=== PATIENT | female | born 1935 | race Caucasian/White ===

== ENCOUNTER 2017-08-21 21:46 | Inpatient (IN) | payer MEDICARE, MEDICAID ==
[~2017-08-21] VITALS: Ht 170.2 cm; Wt 53.8 kg
[~2017-08-21 21:46] MED LIST changes: -CALC-649 PO; -[UNRECOGNIZED DRUG - CODE] SL
[2017-08-21] MEDS ORDERED: NS(*) 0.9% 1000 ML BAG 1,000 ML IV ONE (21:56)
[2017-08-21 22:10] LABS: PLATELET COUNT, AUTOMATED 137 K/uL (150-450)
--- NOTE | 2017-08-21 22:15 | EKG ---
FACILITY: [facility] - [place] PATIENT NAME: CRISTHIAN CERVANTES : [id number] MR: [id number] V: [id number] EXAM DATE: ORDERING PHYSICIAN: MARNI CALDERON TECHNOLOGIST: ANDRES Test Reason : HYPOXIA Blood Pressure : / mmHG Vent. Rate : 139 BPM Atrial Rate : 139 BPM P-R Int : 120 ms QRS Dur : 080 ms QT Int : 294 ms P-R-T Axes : 085 -76 079 degrees QTc Int : 447 ms Sinus tachycardia Left axis deviation Pulmonary disease pattern Septal infarct (cited on or before 09-FEB-2017) Inferior infarct , age undetermined T flattening laterally consistent with ischemia or normal variant When compared with ECG of 09-FEB-2017 21:31, Inferior infarct is now present Questionable change in initial forces of Septal leads Confirmed by LILLI LONG ([id number]) on 08/22/2017 1:52:19 AM Referred By: Confirmed By:LILLI LONG
--- NOTE | 2017-08-21 22:54 | ER Report ---
History and Physical Time Seen By MD: 21:55 Hx. of Stated Complaint: PT SENT HERE FROM [facility]. PT REQUIRING O2 WITH LOW SATS. POSSIBLE NEW ONSET AFIB. HPI/ROS CHIEF COMPLAINT: Altered mental status, hypoxia HISTORY OF PRESENT ILLNESS: 82-year-old female sent from [facility] by ambulance for hypoxia. See correction paperwork for additional details. On arrival, patient does not respond to questions, but moans response, patient has movement of extremities 4. Patient is DO NOT RESUSCITATE. Patient has a history of aspiration. She is on thickened liquids. REVIEW OF SYSTEMS: Respiratory: No cough, no dyspnea. Cardiovascular: No chest pain, no palpitations. Gastrointestinal: No vomiting, no abdominal pain. Musculoskeletal: No back pain. Allergies: Coded Allergies: ezetimibe (Verified Allergy, Intermediate, MUSCLE PAIN, 03/23/13) simvastatin (Verified Allergy, Intermediate, MUSCLE PAIN, 03/23/13) egg (Verified Allergy, Mild, UNKNOWN, 10/17/14) pt stated, reaction mild, makes her "feel funny" sulfamethoxazole (Verified Allergy, Mild, 03/23/13) trimethoprim (Verified Allergy, Mild, 03/23/13) walnut (Verified Allergy, Mild, UNKNOWN, 10/17/14) pt stated she doesnt know reaction, walnuts just make her "feel funny" codeine (Verified Allergy, Unknown, 03/23/13) ropinirole (Unverified Adverse Reaction, Severe, 12/30/14) Falls, confusion metoclopramide (Verified Adverse Reaction, Mild, JUMPY, ANXIOUS, 03/23/13) ZAHIDA Inhibitors (Unverified Adverse Reaction, Unknown, COUGH, 12/07/13) aspirin (Verified Adverse Reaction, Unknown, 08/23/14) anxiety Home Meds Active Scripts Cyanocobalamin (Vitamin B-12) (CYANOCOBALAMIN INJECTION) 1,000 Mcg/1 Ml Vial, 1000 MCG IM DIRECTED, #10 VIAL 1 Refill 1,000 mcg daily for 1 week then 1,000 mcg weekly for 1 month then 1,000 mcg monthly thereafter Prov:WELLINGTON THOMAS APRN VERIFICATION REP-C 01/12/16 Citalopram Hydrobromide (CITALOPRAM HBR) 20 Mg Tablet, 1 TAB PO QDAY, #5 TAB 5 Refills TAKE 1 TABLET BY MOUTH EVERY DAY Prov:WELLINGTON THOMAS APRN-Abdirahman 10/16/15 Aspirin (ASPIR 81) 81 Mg Tablet.dr, 1 TAB PO QDAY, #30 TAB 11 Refills Prov:WELLINGTON THOMAS APRN 10/04/15 Acetaminophen (TYLENOL EXTRA STRENGTH) 500 Mg Tablet, 1 TAB PO TID, #90 TAB 12 Refills Prov:WELLINGTON THOMAS APRN-C 04/03/15 Cholecalciferol (Vitamin D3) (VITAMIN D) 2,000 Unit Capsule, 1 CAP PO QDAY, #90 CAPSULE 4 Refills Prov:NORMA SALINAS MD 09/08/14 Reported Medications Calcium Carbonate/Vitamin D3 (CALCIUM 600 + VIT D 200 TABLET) 1 Each Tablet, 1 EACH PO BID 08/22/17 Glycopyrrolate (GLYCOPYRROLATE) 0.2 Mg/1 Ml Vial, 0.1 MG SL Q6H Y for EXCESS ORAL SECRETIONS, VIAL 08/21/17 Acetaminophen (TYLENOL) 325 Mg Tablet, 2 TAB PO Q4H Y for PAIN OR FEVER 100 OR GREATER, TAB 03/10/17 Discontinued Reported Medications Guaifenesin/Dextromethorphan (TUSSIN DM LIQUID) 118 Ml Liquid, 118 ML PO PRN 03/10/17 Nystatin 100,000 Unit/Gm Top Powder (NYSTATIN 100,000 UNIT/GM TOP POWDER) 15 Gm Powder, 15 GM TP PRN, TUBE 03/10/17 Polyethylene Glycol 3350 (MIRALAX) 17 Gm Powd.pack, 17 GM PO PRN, PKT 03/10/17 Sodium Chloride (DEEP SEA) 44 Ml [place], 44 ML NS PRN, SPRAY 03/10/17 Diclofenac Sodium 1% Gel (VOLTAREN 1% GEL) 100 Gm Gel..gram., 4 GM TOP TID Y for PAIN 10/14/14 Discontinued Scripts Calcium Carbonate/Vitamin D3 (CALCIUM 600 + VIT D CAPLET) 1 Each Tablet, 1 EACH PO TID, #90 TAB 11 Refills Prov:WELLINGTON THOMAS APRN 05/09/15 Omeprazole (OMEPRAZOLE) 20 Mg Tablet.dr, 1 TAB PO BID, #180 TAB 4 Refills TAKE ONE TABLET BY MOUTH TWICE A DAY Prov:WELLINGTON THOMAS APRN 11/27/15 Past Medical/Surgical History Past Medical History Cardiovascular: Reports hx of: hyperlipidemia hypertension Gastrointestinal: Reports hx of: GERD Musculoskeletal: Reports hx of: fractures (PELVIS 06/18 & 10/19) osteopenia osteoporosis Psychiatric: Reports hx of: depression Past Surgical History HEENT: Reports hx of: cataract extraction (2014) Gastrointestinal: Reports hx of: appendectomy Gynecologic: Reports hx of: 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) oophorectomy Breast: Reports hx of: breast biopsy (X3 REMOTE) Musculoskeletal: Reports hx of: spinal surgery (LUMBAR OR FOR SCIATICA, KYPHOPLASTY 04/2009) 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, BILAT DALE) Reviewed Nurses Notes: Yes Old Medical Records Reviewed: Yes Hx Smoking: No Smoking Status: Former Smoker Exposure to Second Hand Smoke?: No Hx Substance Use Disorder: No Hx Alcohol Use: No Constitutional Vital Sign - Last 24 Hours 08/21/17 08/21/17 08/21/17 08/21/17 21:51 21:52 22:00 22:01 Temp 99.1 Pulse 137 143 Resp 22 26 B/P (MAP) 130/87 (101) 130/87 108/81 (90) Pulse Ox 97 97 O2 Delivery Nasal Cannula 08/21/17 08/21/17 08/21/17 08/21/17 22:08 22:16 22:30 22:31 Pulse 145 142 Resp 29 24 B/P (MAP) 107/79 (88) Pulse Ox 98 98 O2 Flow Rate 5.0 08/21/17 08/21/17 08/21/17 08/21/17 22:46 22:51 23:00 23:06 Pulse 138 126 120 Resp 26 22 22 B/P (MAP) 74/57 (63) Pulse Ox 97 98 98 08/21/17 08/21/17 08/21/17 08/21/17 23:12 23:21 23:30 23:36 Pulse 112 114 Resp 22 24 B/P (MAP) 112/83 (93) 116/78 (91) Pulse Ox 99 99 08/21/1718 08/21/17 08/22/17 23:41 23:54 23:56 00:00 Pulse 118 110 Resp 19 20 B/P (MAP) 94/69 (77) 88/67 (74) Pulse Ox 97 98 5/18/18 5/18/18 5/18/18 5/18/18 00:01 00:11 00:13 00:15 Temp 100.3 Pulse 115 Resp 21 B/P (MAP) 82/62 (69) 93/62 (72) Pulse Ox 97 08/22/17 08/22/17 08/22/17 08/22/17 00:26 00:30 00:41 00:45 Pulse 117 115 Resp 22 B/P (MAP) 92/70 (77) 90/65 (73) Pulse Ox 98 08/22/17 08/22/17 08/22/17 08/22/17 00:56 01:01 01:15 01:16 Pulse 113 107 104 Resp 18 B/P (MAP) 99/65 (76) Pulse Ox 99 98 100 08/22/17 01:30 B/P (MAP) 101/71 (81) Physical Exam General Appearance: The patient is alert, has no immediate need for airway protection and no current signs of toxicity. Vital signs stable, low-grade fever 99 3, tachycardic at 139 HEENT: Pupils equal and round no injection. Oropharynx with dry nasal membranes Respiratory: Chest is non tender, lungs are clear to auscultation. No wheezing or rails Cardiac: regular rate and rhythm Gastrointestinal: Abdomen is soft and non tender, no masses, bowel sounds normal. Musculoskeletal: Neck: Neck is supple and non tender., Adenopathy Extremities have full range of motion and are non tender. 1+ edema bilaterally Skin: No rashes or lesions. DIFFERENTIAL DIAGNOSIS: After history and physical exam differential diagnosis was considered for altered mental status including but not limited to hypoglycemia, infectious process, electrolyte abnormality, head injury and intoxicants. Medical Decision Making Data Points Result Diagram: 08/24/17 0525 08/24/17 0525 Laboratory Hematology Test 08/21/17 21:50 C-Reactive Protein 7.9 mg/dl (<1.0) B-Type Natriuretic Peptide 42 pg/ml (0-100) Chemistry Test 08/21/17 21:50 C-Reactive Protein 7.9 mg/dl (<1.0) B-Type Natriuretic Peptide 42 pg/ml (0-100) Microbiology Microbiology Date/Time Source Procedure Growth Status 08/21/17 22:54 Blood Peripheral Draw Blood Culture - Preliminary NO GROWTH AFTER 3 DAYS, REINCUBATED Resulted 08/21/17 22:23 Blood Peripheral Draw Blood Culture - Preliminary NO GROWTH AFTER 3 DAYS, REINCUBATED Resulted EKG/Imaging EKG Interpretation 12 lead EK Rhythm: Sinus tachycardia, rate 140 bpm [place]: Left axis deviation QRS: Old anterior Q waves, old inferior Q waves ST segments: Diffuse nonspecific ST and T-wave flattening, comparison to previous EKGs dated 02/09/17 and 01/24/17, probably not significant morphologic change Imaging X-ray: Single view portable chest x-ray was obtained. I viewed the images myself on the PACS system. My interpretation of the images is: No infiltrate, no effusion, normal mediastinum. The radiologist interpretation had no clinically significant variation from this interpretation. Results: CT scan of the head was obtained. The results of the study are HEAD W/O CONTRAST HISTORY: Altered mental status. COMPARISON: 01/24/2017 and studies dating to 08/02/2008. TECHNIQUE: Axial images were obtained from the skull base to the vertex without contrast. Sagittal and coronal reformats were performed. One of the following dose optimization techniques was utilized in the performance of this exam: Automated exposure control; adjustment of the mA and/ or kV according to the patient's size; or use of an iterative reconstruction technique. Specific details can be referenced in the facility's radiology CT exam operational policy. CONTRAST: None. FINDINGS: Brain: No intracranial hemorrhage, mass or edema. There is periventricular, subcortical, and deep white matter low attenuation that is nonspecific, but most likely reflects chronic microvascular ischemic change, moderate to severe, stable. There is mild calcification of the internal carotid arteries, unchanged. Ventricles and sulci: Sulci are prominent , and there is thinning of the corpus callosum, compatible with moderate to severe atrophy, unchanged. There is compensatory dilation of the ventricles. Osseous structures: Intact. Sinuses and mastoids: There is an air-fluid level within the right sphenoid sinus. There is a mucous retention pseudocyst in the posterior right ethmoid sinus. Sinus disease has significantly improved. There is slight leftward nasal septal bowing. Mastoids are clear. Orbits and soft tissues: There is cerumen within the right external auditory canal, mild to moderate in severity. There are changes of bilateral lens/ cataract surgery. There are degenerative changes C1-2 with pannus formation. IMPRESSION: 1. No acute intracranial abnormality. 2. Improvement in the paranasal sinus disease. The study was read by the radiologist. I viewed the images myself on the PACS system. ED Course/Re-evaluation Clinical Indication for ER IV: Hydration, IV Access ED Course Patient was admitted to an examination room. H&P was done. The differential diagnoses was considered. Patient with a low-grade fever, hypotension, tachycardia. She appears dehydrated. Patient was pancultured. Nurses were unable to get catheter urinary specimen. Her lactate elevated. Chest x-ray is clear. I'm worried she is septic. Case was discussed with hospitalist, Dr. Dre Herrera who accepts the patient for admission. 08/22/2017 12:39:40 am case discussed with Dr. Dre Herrera hospitalist on- call, who accepts patient for admission. Decision to Disposition Date: August 22, 2017 Decision to Disposition Time: 00:24 Depart Departure Latest Vital Signs Vital Signs Date Time Temp Pulse Resp B/P (MAP) Pulse Ox O2 Delivery O2 Flow Rate FiO2 08/22/17 01:30 101/71 (81) 08/22/17 01:16 104 18 100 08/22/17 00:13 100.3 08/21/17 22:08 5.0 08/21/17 21:52 Nasal Cannula Impression: Primary Impression: Altered mental status Additional Impressions: Hypernatremia Leukocytosis Hypoxia Condition: Improved Disposition: Admitted from ER Referrals: WELLINGTON THOMAS APRN VERIFICATION REP-C (PCP) Problem Qualifiers Primary Impression: Altered mental status Altered mental status type: unspecified Qualified Codes: R41.82 - Altered mental status, unspecified Additional Impressions: Leukocytosis Leukocytosis type: unspecified Qualified Codes: D72.829 - Elevated white blood cell count, unspecified MARNI CALDERON DO August 21, 2017 22:54
--- NOTE | 2017-08-21 23:05 | RADIOLOGY IMAGING REPORT ---
FACILITY: [facility] - [place] PATIENT NAME: Linsey Lopez : 1935 MR: [id number] V: [id number] EXAM DATE: ORDERING PHYSICIAN: MARNI CALDERON TECHNOLOGIST: Location: [facility] Patient: Linsey Lopez : 1935 Visit/Account:[id number] Date of Sevice: 08/21/2017 PORTABLE CHEST: Indication: Fever. Technique: A single frontal film was obtained. Comparison: 02/09/2017 Skeletal and soft tissue structures: There is evidence of prior vertebroplasty procedure. There are c hronic degenerative changes in the spine. No acute skeletal deformity is identified. Heart and mediastinum: Within normal limits. Lung feldman: Well-expanded. There are chronic interstitial changes. No acute process is identified. Pleural spaces: Unremarkable. Impression: No acute interval change. Report Dictated By: Scott Carter MD at 08/21/2017 10:54 PM Report E-Signed By: Scott Carter MD at 08/21/2017 11:00 PM WSN:[id number]
[2017-08-21] MEDS ORDERED: [UNRECOGNIZED DRUG - CODE] SL (23:56)
[2017-08-22] VITALS (7 sets, daily range): BP systolic 108–129; BP diastolic 66–87; Ht 170.2 cm; Wt 53.8 kg
[2017-08-22] MEDS ORDERED: NS(*) 0.9% 1000 ML BAG 1,000 ML IV ONE (00:15)
--- NOTE | 2017-08-22 00:15 | RADIOLOGY IMAGING REPORT ---
FACILITY: [facility] PATIENT NAME: Linsey Lopez : 1935 MR: [id number] V: [id number] EXAM DATE: ORDERING PHYSICIAN: MARNI CALDERON TECHNOLOGIST: Location: [facility] [place] Patient: Linsey Lopez : 1935 Visit/Account:[id number] Date of Sevice: 08/21/2017 HEAD W/O CONTRAST HISTORY: Altered mental status. COMPARISON: 01/24/2017 and studies dating to 08/02/2008. TECHNIQUE: Axial images were obtained from the skull base to the vertex without contrast. Sagittal an d coronal reformats were performed. One of the following dose optimization techniques was utilized in the performance of this exam: Autom ated exposure control; adjustment of the mA and/or kV according to the patient's size; or use of an i terative reconstruction technique. Specific details can be referenced in the facility's radiology CT exam operational policy. CONTRAST: None. FINDINGS: Brain: No intracranial hemorrhage, mass or edema. There is periventricular, subcortical, and deep whi te matter low attenuation that is nonspecific, but most likely reflects chronic microvascular ischemi c change, moderate to severe, stable. There is mild calcification of the internal carotid arteries, u nchanged. Ventricles and sulci: Sulci are prominent , and there is thinning of the corpus callosum, compatible with moderate to severe atrophy, unchanged. There is compensatory dilation of the ventricles. Osseous structures: Intact. Sinuses and mastoids: There is an air-fluid level within the right sphenoid sinus. There is a mucous retention pseudocyst in the posterior right ethmoid sinus. Sinus disease has significantly improved. There is slight leftward nasal septal bowing. Mastoids are clear. Orbits and soft tissues: There is cerumen within the right external auditory canal, mild to moderate in severity. There are changes of bilateral lens/cataract surgery. There are degenerative changes C1- 2 with pannus formation. IMPRESSION: 1. No acute intracranial abnormality. 2. Improvement in the paranasal sinus disease. Report Dictated By: Rosalva Salgado at 08/22/2017 12:04 AM Report E-Signed By: Rosalva Salgado at 08/22/2017 12:11 AM WSN:[id number]
[2017-08-22] MEDS ORDERED: ACETAMINOPHEN(*)1000 MG/100 ML 100 ML IVPB PRN (01:25)
[2017-08-22] MEDS ORDERED: INFLUENZA VIRUS VAC 0.5 ML SYR IM ONLY ONE (01:25)
[2017-08-22] MEDS ORDERED: NS(*) 0.9% 1000 ML BAG 1,000 ML IV PRN (01:35)
--- NOTE | 2017-08-22 02:04 | History & Physical ---
History of Present Illness History of Present Illness 82yo female with dementia, sacral pressure sore and dysphagia who was brought to the ER for tachycardia to 127bpm, and hypoxia with RA sat of 79%. She is unable to give any history. Her son reports that tonight was a recent change in status, but that she has had poor oral intake lately. Apparently, she was found to have an increased HR and hypoxia. In the ER, she was given IVF. History Problems: (1) Dementia Status: Chronic (2) Loss of weight Status: Chronic (3) Depression, endogenous Status: Chronic (4) Leg edema, right Onset Date: 01/04/2014 Status: Chronic (5) Dysphagia Home Meds Active Scripts Cyanocobalamin (Vitamin B-12) (CYANOCOBALAMIN INJECTION) 1,000 Mcg/1 Ml Vial, 1000 MCG IM DIRECTED, #10 VIAL 1 Refill 1,000 mcg daily for 1 week then 1,000 mcg weekly for 1 month then 1,000 mcg monthly thereafter Prov:WELLINGTON THOMAS APRN-C 01/12/16 Citalopram Hydrobromide (CITALOPRAM HBR) 20 Mg Tablet, 1 TAB PO QDAY, #5 TAB 5 Refills TAKE 1 TABLET BY MOUTH EVERY DAY Prov:WELLINGTON THOMAS APRN-C 10/16/15 Aspirin (ASPIR 81) 81 Mg Tablet., 1 TAB PO QDAY, #30 TAB 11 Refills Prov:WELLINGTON THOMAS APRN-C 10/04/15 Calcium Carbonate/Vitamin D3 (CALCIUM 600 + VIT D CAPLET) 1 Each Tablet, 1 EACH PO TID, #90 TAB 11 Refills Prov:WELLINGTON THOMAS APRN-C 05/09/15 Acetaminophen (TYLENOL EXTRA STRENGTH) 500 Mg Tablet, 1 TAB PO TID, #90 TAB 12 Refills Prov:WELLINGTON THOMAS APRN-C 04/03/15 Cholecalciferol (Vitamin D3) (VITAMIN D) 2,000 Unit Capsule, 1 CAP PO QDAY, #90 CAPSULE 4 Refills Prov:NORMA SALINAS MD 09/08/14 Reported Medications Glycopyrrolate (GLYCOPYRROLATE) 0.2 Mg/1 Ml Vial, 0.1 MG SL Q6H Y for EXCESS ORAL SECRETIONS, VIAL 08/21/17 Acetaminophen (TYLENOL) 325 Mg Tablet, 325 MG PO PRN, TAB 03/10/17 Discontinued Reported Medications Guaifenesin/Dextromethorphan (TUSSIN DM LIQUID) 118 Ml Liquid, 118 ML PO PRN 03/10/17 Nystatin 100,000 Unit/Gm Top Powder (NYSTATIN 100,000 UNIT/GM TOP POWDER) 15 Gm Powder, 15 GM TP PRN, TUBE 03/10/17 Polyethylene Glycol 3350 (MIRALAX) 17 Gm Powd.pack, 17 GM PO PRN, PKT 03/10/17 Sodium Chloride (DEEP SEA) 44 Ml [place], 44 ML NS PRN, SPRAY 03/10/17 Diclofenac Sodium 1% Gel (VOLTAREN 1% GEL) 100 Gm Gel..gram., 4 GM TOP TID Y for PAIN 10/14/14 Discontinued Scripts Omeprazole (OMEPRAZOLE) 20 Mg Tablet.dr, 1 TAB PO BID, #180 TAB 4 Refills TAKE ONE TABLET BY MOUTH TWICE A DAY Prov:WELLINGTON THOMAS APRN UNIT EDUCATOR-C 11/27/15 Allergies: Coded Allergies: ezetimibe (Verified Allergy, Intermediate, MUSCLE PAIN, 03/23/13) simvastatin (Verified Allergy, Intermediate, MUSCLE PAIN, 03/23/13) egg (Verified Allergy, Mild, UNKNOWN, 10/17/14) pt stated, reaction mild, makes her "feel funny" sulfamethoxazole (Verified Allergy, Mild, 03/23/13) trimethoprim (Verified Allergy, Mild, 03/23/13) walnut (Verified Allergy, Mild, UNKNOWN, 10/17/14) pt stated she doesnt know reaction, walnuts just make her "feel funny" codeine (Verified Allergy, Unknown, 03/23/13) ropinirole (Unverified Adverse Reaction, Severe, 12/30/14) Falls, confusion metoclopramide (Verified Adverse Reaction, Mild, JUMPY, ANXIOUS, 03/23/13) ZAHIDA Inhibitors (Unverified Adverse Reaction, Unknown, COUGH, 12/07/13) aspirin (Verified Adverse Reaction, Unknown, 08/23/14) anxiety Patient History: FH: alcoholism FATHER, , Age:60 years and older FHx: stroke MOTHER, , Age:49 Hx Smoking: No Smoking Status: Former Smoker Exposure to Second Hand Smoke?: No Caffeine Intake: Coffee Caffeine/Cups Per Day: 4 cups Hx Alcohol Use: No Hx Substance Use Disorder: No Social Drug Use: Never Review of Systems Other She is unable to give any history and family hadn't noticed any recent change Exam Vital Signs Vital Signs Date Time Temp Pulse Resp B/P (MAP) Pulse Ox O2 Delivery O2 Flow Rate FiO2 08/22/17 00:56 113 19 99 08/22/17 00:45 90/65 (73) 08/22/17 00:13 100.3 08/21/17 22:08 5.0 08/21/17 21:52 Nasal Cannula General Appearance: Awake, No Acute Distress Neuro: Other (She won't speak, but appears to nod her head to questions. It is unclear if she understands the questions. She follows commands) ENT: Other (Dry MMM. Whitish material on palate, tongue and in mouth) Cardiovascular: Other (tachy, regular) Respiratory: Clear to Auscultation GI: Abd Soft and Non-Tender Extremities: Edema (R>L in LE with 1-2+ pitting) Integumentary: No Jaundice, No Cyanosis Medical Decision Making Data Points Result Diagram: 08/21/17214908/21/172149 Item Value Date Time Sodium Level 158 mmol/L *H 08/21/172149 Lactate 2.6 mmol/L H 08/21/172149 Troponin I 0.070 ng/ml 08/21/172149 B-Type Natriuretic Peptide 42 pg/ml 08/21/172149 Total Bilirubin 1.8 mg/dl H 08/21/172149 Calcium Level 10.1 mg/dl 08/21/172149 Aspartate Amino Transf (AST/SGOT) 28 U/L 08/21/172149 Alanine Aminotransferase (ALT/SGPT) 23 U/L 08/21/172149 Alkaline Phosphatase 88 U/L 08/21/172149 C-Reactive Protein 7.9 mg/dl H 08/21/172149 Total Protein 5.7 gm/dl L 08/21/172149 Albumin 3.0 g/dl L 08/21/172149 Neutrophils (%) (Auto) 93.4 % H 08/21/172149 Lymphocytes (%) (Auto) 3.9 % L 08/21/172149 Monocytes (%) (Auto) 2.5 % L 08/21/172149 Eosinophils (%) (Auto) 0.0 % L 08/21/172149 EKG / Imaging EKG Interpretation Vent. Rate : 139 BPM Atrial Rate : 139 BPM P-R Int : 120 ms QRS Dur : 080 ms QT Int : 294 ms P-R-T Axes : 085 -76 079 degrees QTc Int : 447 ms Sinus tachycardia Left axis deviation Pulmonary disease pattern Septal infarct (cited on or before 09-FEB-2017) Inferior infarct , age undetermined T flattening laterally When compared with ECG of 09-FEB-2017 21:31, Inferior infarct is now present Questionable change in initial forces of Septal leads Imaging CXR - No infiltrate noted. Hyperexpanded lungs Head CT - 1. No acute intracranial abnormality. 2. Improvement in the paranasal sinus disease. Assessment and Plan Problems: (1) Sepsis Status: Acute Assessment & Plan: She presented with sudden onset of tachycardia, low normal BP and hypoxia. She had a fever to 100.3 in the ER, elevated lactate and leukocytosis. There is no obvious source, but the ER was unable to obtain a urine sample. Her heart rate has decreased and BP improved with IVF. Will continue hydration and recheck a lactate. Will start Primaxin, try to get a UA , and recheck a CXR in the morning. (2) Elevated troponin Status: Acute Assessment & Plan: Secondary to strain of illness. No ST elevation. Will follow. (3) Hypernatremia Status: Acute Assessment & Plan: Secondary to dehydration. Will follow. (4) Sacral pressure sore Status: Chronic Assessment & Plan: There is surrounding erythema and the wound goes to the subcutaneous fat. Will ask PT to evaluate for wound care recommendations. Copies to: WELLINGTON THOMAS APRN UNIT EDUCATOR-C Venous Thromboembolism Antithrombotics Is Pt On Any Antithrombotics?: No Exam Sepsis Risk: Possible Sepsis Risk LILLI LONG MD August 22, 2017 02:04
[2017-08-22] MEDS: IMIPENEM/CILASTA(*) 500MG VIAL 300 MG in NS(*) 0.9% 100 ML BAG 100 ML IVPB SCH ×4 (02:45→19:49)
[2017-08-22 05:43] LABS: PLATELET COUNT, AUTOMATED 88 K/uL (150-450)
--- NOTE | 2017-08-22 06:57 | RADIOLOGY IMAGING REPORT ---
FACILITY: [facility] - [place] PATIENT NAME: Linsey Lopez : 1935 MR: [id number] V: [id number] EXAM DATE: ORDERING PHYSICIAN: LILLI LONG TECHNOLOGIST: Location: Patient: Linsey Lopez : 1935 Visit/Account:[id number] Date of Sevice: 08/22/2017 CHEST SINGLE AP 08/22/2017 07:00 hours. HISTORY: Hypoxia. COMPARISON: 08/21/2017 and studies dating to 01/21/2006. TECHNIQUE: Portable AP view of the chest. FINDINGS: Tubes/lines/hardware: There are external chest leads. There is methylmethacrylate within T12 and exte nding outside of the vertebral body into a left paravertebral vein, unchanged. Pulmonary: Patient's chin projects over the lung apices. There is hyperinflation. The right lung is c lear. There is blunting of the left costophrenic angle that has minimally progressed. Left basilar at electasis is unchanged. Cardiomediastinal: Cardiac and mediastinal silhouettes are within normal limits. There is mild aortic calcification. Bones/soft tissues: No acute osseous abnormality. There is diffuse osteopenia. The visible abdomen is normal. IMPRESSION: 1. Right lung remains clear. 2. Left basilar atelectasis is similar to prior study. 3. Blunting of the left costophrenic angle has slightly progressed and suspect is due to a small pleu ral effusion. Report Dictated By: Rosalva Salgado at 08/22/2017 6:48 AM Report E-Signed By: Rosalva Salgado at 08/22/2017 6:52 AM [id number]
[2017-08-22] MEDS ORDERED: KCL 2 MEQ/ML 20 MEQ/10 ML VIAL 20 MEQ in NS 0.45%(*) 1000 ML BAG 1,000 ML IV PRN ×2 (08:30→12:57)
[2017-08-22] MEDS ORDERED: CALC-649 PO (08:58)
[2017-08-22] MEDS ORDERED: ENOXAPARIN 30 MG/0.3 ML SYR SC SCH (09:00)
--- NOTE | 2017-08-22 10:37 | Hospitalist Progress Note ---
Subjective Progress Notes Subjective This patient was admitted for sepsis. She had no acute changes overnight. Patient Complains of: Cardiovascular: No: Chest Pain Respiratory: No: Shortness of Breath Physical Exam Vital Signs Date Time Temp Pulse Resp B/P (MAP) Pulse Ox O2 Delivery O2 Flow Rate FiO2 08/22/17 07:50 99.1 109 14 116/76 (89) 94 Nasal Cannula 0.5 Intake and Output 08/23/17 07:00 Intake Total 467 ml Balance 467 ml IV Total 467 ml Cardiovascular: Regular Rate and Rhythm Respiratory: Clear to Auscultation Extremities: No Edema Integumentary: No Cyanosis Result Diagram: 08/22/17 0534 08/22/17 0534 Item Value Date Time Lactate 2.6 mmol/L H 08/21/17 2150 Lactate 1.8 mmol/L 08/22/17 0534 Item Value Date Time Blood Culture - Preliminary Resulted 08/21/17 2254 Blood Peripheral Draw NO GROWTH AFTER 1 DAY, REINCUBATED Blood Culture - Preliminary Resulted 08/21/17 2223 Blood Peripheral Draw NO GROWTH AFTER 1 DAY, REINCUBATED Assessment and Plan Problems: (1) Sepsis Status: Acute Assessment & Plan: She presented with sudden onset of tachycardia, a low normal BP and hypoxia. She did have a fever to 100.3 in the ER, Her WBC and lactate were also found to be elevated. She is receiving empiric treatment with Primaxin. Cultures are pending. (2) Elevated troponin Status: Acute Assessment & Plan: Her troponin is in equivocal range, but has not risen in a pattern consistent with myocardial injury. (3) Hypernatremia Status: Acute Assessment & Plan: We have changed her fluids to 1/2NS. (4) Sacral pressure sore Status: Chronic Assessment & Plan: Physical therapy has been consulted for wound care. Exam Sepsis Risk: No Definite Risk JUNO ELDRIDGE DO August 22, 2017 10:36
--- NOTE | 2017-08-22 12:59 | SLP BEDSIDE SWALLOW EVALUATION ---
SPEECH THERAPY ASSESSMENT Physician: Osito Layton DO Clinician: Clotilde Armas MS, CCC-INJECTION MOLD TECHNICIAN Type of Assessment: Dysphagia Evaluation Patient: Linsey Lopez : 1935, 82yrs Evaluation Date: 08/22/2017 BACKGROUND The patient is an 82yo female admitted to [facility] w/ sepsis, hypernatremia, and hypoxia. Pt w/ baseline dysphagia and dementia. She resides at the [facility] and consumes a pureed diet w/ nectar thick liquids. Dysphagia assessment is warranted following acute changes in medical status to further evaluate swallow structure and function, determine appropriate dietary modifications, develop compensatory swallow strategies, and make recommendations for safe medication administration. Primary Medical Diagnosis: Sepsis. Pain Scale (0-10): Patient w/ no attempts to verbalize. Appears comfortable. COGNITION/COMMUNICATION LOC / Participation: alert, limited participation, no verbalizations, no vocalizations. Follows instructions: single step instructions during 50% of opportunities w/ visual model and tactile cues. Orientation: unable to determine. Functional Communication Deficits impact swallow function/safety, or response to therapy: Yes. Severity of dementia appears to be negatively impacting initiation of swallow mechanism, recognition of mealtime tasks, and recognition of material in oral cavity. DYSPHAGIA Sialorrhea: No Xerostomia: Yes Supplemental Oxygen Use: Yes. 0.5LPM via NC, continuous. Respiratory Rate: WNL. O2 sats maintained above 94 throughout swallow eval. COPD Dx: No Pain with Swallow: unable to determine. Oral Structure and Function: Unable to complete formal oromotor exam 2/2 severity of cognitive deficits and inconsistent ability to follow simple instructions. Pt w/ out top teeth, missing majority of bottom row. Achieved lingual protrusion w/ notable delay, weakness, and decreased ROM. Labial seal was reduced against spoon during delivery of NTL and puree trials. Attempted administration of PO trials w/ tsp of puree and spoon dipped in nectar. Pt w/ completely lacking swallow initiation, including total oral stasis of material. Attempted to support initiation of a-p transit and pharyngeal swallow onset via lingual and laryngeal tactile stimulation. However , attempts were unsuccessful. Contents were ultimately suctioned from oral cavity. ST ASSESSMENT SUMMARY Aspiration Risk: Pt is at severely elevated risk for aspiration 2/2 age, poor oral/dental hygiene, generalized weakness, acute decline in medical status, hx of dysphagia, compromised respiratory status, and severity of cognitive impairments. Speech Therapy Need ST will continue to analyze swallow status and evolve diet recommendations as appropriate. ST will also continue to provide caregiver education re: aspiration precautions and safe swallow strategies to minimize risk for aspiration pneumonia. RECOMMENDATIONS 1. Diet: NPO 2. Medications: non-oral, IV 3. Aspiration precautions: complete regular oral hygiene PLAN OF CARE 1. Patient will initiate oral and pharyngeal phases of swallow w/ trials of pureed solids when provided w/ mod verbal/visual/tactile cues. 2. Patient will consume PO trials of pureed solids and nectar thick liquids w/ no overt s/sx of aspiration during 100% of opportunities. 3. Caregivers will demonstrate comprehension of education provided re: appropriate cueing strategies and aspiration precautions to promote adequate levels of nutrition/hydration w/ decreased risk for aspiration pneumonia. Rehabilitation Prognosis: Guarded Thank you for this referral. Clotilde Armas M.S., [facility]-INJECTION MOLD TECHNICIAN Speech Therapist Physician Signature Date [*] [facility]
[2017-08-22] MEDS: KCL 2 MEQ/ML 20 MEQ/10 ML VIAL 20 MEQ in NS 0.45%(*) 1000 ML BAG 1,000 ML IV SCH (19:48)
[2017-08-23] MEDS: IMIPENEM/CILASTA(*) 500MG VIAL 300 MG in NS(*) 0.9% 100 ML BAG 100 ML IVPB SCH ×4 (02:05→20:34)
[2017-08-23 03:33] VITALS: BP 121/70
[2017-08-23] MEDS: KCL 2 MEQ/ML 20 MEQ/10 ML VIAL 20 MEQ in NS 0.45%(*) 1000 ML BAG 1,000 ML IV SCH ×2 (05:10→19:04)
[2017-08-23 06:06] LABS: PLATELET COUNT, AUTOMATED 75 K/uL (150-450)
--- NOTE | 2017-08-23 09:57 | Hospitalist Progress Note ---
Subjective Progress Notes Subjective This patient was admitted for altered mental status. She is able to open her eyes this morning. Patient Complains of: Cardiovascular: No: Chest Pain Respiratory: No: Shortness of Breath Physical Exam Vital Signs Date Time Temp Pulse Resp B/P (MAP) Pulse Ox O2 Delivery O2 Flow Rate FiO2 08/23/17 03:33 97.9 79 18 121/70 (87) 95 Nasal Cannula 0.5 Cardiovascular: Regular Rate and Rhythm Respiratory: Other (Bilateral rhonchi.) Result Diagram: 08/23/1752508/23/17525 Assessment and Plan Problems: (1) Sepsis Status: Acute Assessment & Plan: She presented with sudden onset of tachycardia, a low normal BP and hypoxia. She did have a fever to 100.3 in the ER, Her WBC and lactate were also found to be elevated. She is receiving empiric treatment with Primaxin. Cultures are negative to this point. (2) Elevated troponin Status: Acute Assessment & Plan: Her troponin is in equivocal range, but has not risen in a pattern consistent with myocardial injury. (3) Hypernatremia Status: Acute Assessment & Plan: Her sodium is decreasing with an infusion of 1/2 NS. (4) Sacral pressure sore Status: Chronic Assessment & Plan: Physical therapy has been consulted for wound care. Exam Sepsis Risk: No Definite Risk JUNO ELDRIDGE DO August 23, 2017 09:56
--- NOTE | 2017-08-23 13:36 | Medical Nutrition Therapy ---
Nutrition Anthropometrics Height (Inches): 67.00 Height (Calculated Centimeters: 170.918929 Weight (Pounds): 118 Weight (Calculated Kilograms): 53.751 BMI Calculated: 18.48 Hx Weight Loss: Yes (42# wt loss since 2016) Christopher Nutrition Score: Probably Inadequate Christopher Nutrition Risk Score: 12 Dietary Referral Nutrition Risk Factors: Unplanned Loss >10lbs Nutrition Risk Comment: no acute changes Physical Findings Physical Appearance: Underweight BMI<19 Skin Appearance Skin Appearance: Edema Edema Location Modifier: Left Edema Location: Ankle Type of Edema: Degree of Edema: 2+ Gastrointestinal Symptoms GI Symtoms: Tube Present: Bowel Sounds: Recent Bowel Pattern: Stool Characteristics: Nutrition/Food History Decreased Appetite, Difficulty Swallowing Nutritional Diagnosis Nutritional Risk Acuity 2: Dysphagia, Sepsis Nutritional Risk Acuity 3: Weight Loss, GERD Past Medical History: HX of HTN, Hyperlipidemia, Parkinson, RLS, GERD,dementia, hypernatemia, sacral pressure sore, dyshagia, sepsis Nutritional Acuity: 2-Moderate Nutrition Diagnosis: Swallowing Difficulties Nutrition Etiology: Physiological Causes Nutrition Problem/Etiology/Sym: Swallowing Difficulty related to Mechanical issues, e.g., poor dental condition and weakness AEB need for SL recommendation of NPO and will continue to analyze swallow status and evolve diet recommendations as appropriate. Energy Requirement: 1665 ([place]-St Jeor: IBW X 1.5) Protein Requirement: 61 (IBW Kg X 1.0) Fluid Requirement: 1665 Diet Type: NPO (Nothing by Mouth) Nutrition Intervention: Change diet, Incr diet as tolerated Nutrition Monitoring & Eval Nutrition Goals: Eat 75-100% Meal RD Patient Assessment Time: [address] Assessment Type: RD Assessment Patient Nutrition Acuity: 2-Moderate Follow Up Date: August 24, 2017 Nutritional Comment: 08/22 Pt admitted for hypoxia and sepsis from [facility]. Pt is on NPO diet. Pt also has a history of dysphagia and is on thicken liquids. Notable labs are elevated Na 158, BUN 26, low K+ 2.8, and low alb 2.5. Pt also has history of unintentional wt loss since February 2017, with wt loss of 42 lbs. Once pt advances from NPO, pt may benefit nutrition supplement. Continue to monitor pt progress and diet advancement. MT 08/23 Diet changed to NPO after SL eval with recommmendation of NPO and "severely elevated risk for aspiration d/t age, poor oral/dental hygiene, generalized weakness, acute decline in medical status, hx of dysphagia, compromised respiratory status, and severity of cognitive impairments. Will continue to analyze swallow status and evolve diet recommendations as appropriate." Follow clinical progression and diet changes. PRAVIN MELCHOR August 23, 2017 13:36
[2017-08-23 14:35] VITALS: BP 134/90
[2017-08-23 20:32] VITALS: BP 125/82
[2017-08-24 02:00] VITALS: BP 137/92
[2017-08-24] MEDS: IMIPENEM/CILASTA(*) 500MG VIAL 300 MG in NS(*) 0.9% 100 ML BAG 100 ML IVPB SCH ×2 (03:26→09:15)
[2017-08-24] MEDS: KCL 2 MEQ/ML 20 MEQ/10 ML VIAL 20 MEQ in NS 0.45%(*) 1000 ML BAG 1,000 ML IV SCH (03:26)
[2017-08-24 06:15] LABS: PLATELET COUNT, AUTOMATED 89 K/uL (150-450)
[2017-08-24 07:23] VITALS: BP 132/88
[2017-08-24] MEDS ORDERED: KCL 2 MEQ/ML 20 MEQ/10 ML VIAL 20 MEQ in NS 0.45%(*) 1000 ML BAG 1,000 ML IV SCH (11:20)
[2017-08-24] MEDS: LORazepam 2 MG/ML VIAL IVP PRN ×2 (12:07→16:20)
--- NOTE | 2017-08-24 13:05 | Hospitalist Progress Note ---
Subjective Progress Notes Subjective The family and the patient would like her to be comfort care only. The patient denies pain, but does have some SOB. Family reports that she is a bit anxious. Physical Exam Vital Signs Date Time Temp Pulse Resp B/P (MAP) Pulse Ox O2 Delivery O2 Flow Rate FiO2 08/24/17 07:25 Nasal Cannula 2.0 08/24/17 07:23 98.3 99 19 132/88 (103) 97 General Appearance: Alert, Awake, No Acute Distress Neuro: Other (Nods head to answer questions) Result Diagram: 08/24/1752408/24/17524 Assessment and Plan Problems: (1) End of life care Status: Acute Assessment & Plan: The patient with the family's agreement have chose to be comfort care. She would like to go to the [facility]. Morphine and Ativan will be used. Abx and IVF have been stopped. (2) Sepsis Status: Acute Assessment & Plan: She presented with sudden onset of tachycardia, a low normal BP and hypoxia. She did have a fever to 100.3 in the ER. Her WBC and lactate were also found to be elevated. Urine culture is growing an ESBL E. Coli and two GPC's. She was receiving empiric treatment with Primaxin, but that was stopped. See above. (3) Elevated troponin Status: Acute Assessment & Plan: Her troponin is in equivocal range, but has not risen in a pattern consistent with myocardial injury. (4) Hypernatremia Status: Acute Assessment & Plan: Her sodium was decreasing with an infusion of 1/2 NS, but now saline locked. (5) Sacral pressure sore Status: Chronic Assessment & Plan: Physical therapy has been consulted for wound care. Exam Sepsis Risk: No Definite Risk LILLI LONG MD August 24, 2017 13:05
--- NOTE | 2017-08-24 13:27 | Medical Nutrition Therapy ---
Nutrition Anthropometrics Height (Inches): 67.00 Height (Calculated Centimeters: 170.738154 Weight (Pounds): 118 Weight (Calculated Kilograms): 53.751 BMI Calculated: 18.48 Hx Weight Loss: Yes (42# wt loss since 2016) Christopher Nutrition Score: Probably Inadequate Christopher Nutrition Risk Score: 12 Dietary Referral Nutrition Risk Factors: Unplanned Loss >10lbs Nutrition Risk Comment: no acute changes Physical Findings Physical Appearance: Underweight BMI<19 Skin Appearance Skin Appearance: Edema Edema Location Modifier: Left Edema Location: Ankle Type of Edema: Degree of Edema: 2+ Gastrointestinal Symptoms GI Symtoms: Tube Present: Bowel Sounds: Recent Bowel Pattern: Stool Characteristics: Nutrition/Food History Decreased Appetite, Difficulty Swallowing Nutritional Diagnosis Nutritional Risk Acuity 2: Dysphagia, Sepsis Nutritional Risk Acuity 3: Weight Loss, GERD Past Medical History: HX of HTN, Hyperlipidemia, Parkinson, RLS, GERD,dementia, hypernatemia, sacral pressure sore, dyshagia, sepsis Nutritional Acuity: 2-Moderate Nutrition Diagnosis: Swallowing Difficulties Nutrition Etiology: Physiological Causes Nutrition Problem/Etiology/Sym: No Nutrition Diagnosis at This Time related to not applicable AEB patients declining condition and patient/family desire for palliative/end-of-life care. Swallowing Difficulty related to Mechanical issues, e.g., poor dental condition and weakness AEB need for SL recommendation of NPO and will continue to analyze swallow status and evolve diet recommendations as appropriate. Energy Requirement: 1665 ([place]-St Jeor: IBW X 1.5) Protein Requirement: 61 (IBW Kg X 1.0) Fluid Requirement: 1665 Diet Type: NPO (Nothing by Mouth) Nutrition Intervention: Change diet, Incr diet as tolerated Diet Comment To RSA: COMFORT CARE Nutrition Monitoring & Eval RD Patient Assessment Time: [address] Assessment Type: RD Re-Assessment Patient Nutrition Acuity: 2-Moderate Follow Up Date: August 27, 2017 Nutritional Comment: 08/22 Pt admitted for hypoxia and sepsis from [facility]. Pt is on NPO diet. Pt also has a history of dysphagia and is on thicken liquids. Notable labs are elevated Na 158, BUN 26, low K+ 2.8, and low alb 2.5. Pt also has history of unintentional wt loss since February 2017, with wt loss of 42 lbs. Once pt advances from NPO, pt may benefit nutrition supplement. Continue to monitor pt progress and diet advancement. MT 08/23 Diet changed to NPO after SL eval with recommmendation of NPO and "severely elevated risk for aspiration d/t age, poor oral/dental hygiene, generalized weakness, acute decline in medical status, hx of dysphagia, compromised respiratory status, and severity of cognitive impairments. Will continue to analyze swallow status and evolve diet recommendations as appropriate." Follow clinical progression and diet changes. DRT 08/24 Patient and family have requested comfort care only. Pt has also requested [facility]. Abx and IVF have been stopped. -PRAVIN MELCHOR August 24, 2017 13:27
[2017-08-24] MEDS: MORPHINE 2 MG/ML SYR IVP PRN (17:11)
[2017-08-25] MEDS: MORPHINE 2 MG/ML SYR IVP PRN (05:16)
[2017-08-25] MEDS ORDERED: MORPHINE 1 MG/ML 30 ML PCA IV PRN (08:30)
[2017-08-25] MEDS ORDERED: SCOPOLAMINE 1.5 MG PATCH TD ONE (08:30)
[2017-08-25] MEDS ORDERED: NALOXONE HCL 0.4 MG/ML VIAL IVP PRN (08:40)
[2017-08-25] MEDS ORDERED: NS(*) 0.9% 500 ML BAG 500 ML ONE (09:01)
[2017-08-25] MEDS ORDERED: NS(*) 0.9% 500 ML BAG 500 ML IV PRN (09:05)
--- NOTE | 2017-08-25 11:10 | Hospitalist Progress Note ---
Subjective Progress Notes Subjective She is not responsive this morning. Physical Exam Vital Signs Date Time Temp Pulse Resp B/P (MAP) Pulse Ox O2 Delivery O2 Flow Rate FiO2 08/25/17 10:13 91 Oxy Mask 0.5 08/24/17 19:51 113 24 08/24/17 07:23 98.3 132/88 (103) General Appearance: No Acute Distress, Afebrile Respiratory: Clear to Auscultation Result Diagram: 08/24/1752408/24/17524 Assessment and Plan Problems: (1) End of life care Status: Acute Assessment & Plan: The patient with the family's agreement have chose to be comfort care. She would like to go to the [facility]. Morphine and Ativan will be used. Abx and IVF have been stopped. (2) Sepsis Status: Acute Assessment & Plan: She presented with sudden onset of tachycardia, a low normal BP and hypoxia. She did have a fever to 100.3 in the ER. Her WBC and lactate were also found to be elevated. Urine culture is growing an ESBL E. Coli and two GPC's. She was receiving empiric treatment with Primaxin, but that was stopped. See above. (3) Elevated troponin Status: Acute Assessment & Plan: Her troponin is in equivocal range, but has not risen in a pattern consistent with myocardial injury. (4) Hypernatremia Status: Acute Assessment & Plan: Her sodium was decreasing with an infusion of 1/2 NS, but now saline locked. (5) Sacral pressure sore Status: Chronic Assessment & Plan: Physical therapy has been consulted for wound care. Exam Sepsis Risk: Severe Sepsis Risk ELAN LUNA FORENSIC BALLISTICS EXPERT August 25, 2017 11:10
[2017-08-26] MEDS ORDERED: MORPHINE 1 MG/ML 30 ML PCA IV PRN ×2 (10:05→14:30)
--- NOTE | 2017-08-26 10:07 | Hospitalist Depart ---
Discharge Summary Reason for Hosp/Final Diag: (1) End of life care Status: Acute Hospital Course & Plan: The patient with the family's agreement have chose to be comfort care. She would like to go to the [facility]. Morphine and Ativan will be used. Abx and IVF have been stopped. (2) Sepsis Status: Acute Hospital Course & Plan: She presented with sudden onset of tachycardia, a low normal BP and hypoxia. She did have a fever to 100.3 in the ER. Her WBC and lactate were also found to be elevated. Urine culture is growing an ESBL E. Coli and two GPC's. She was receiving empiric treatment with Primaxin, but that was stopped. See above. (3) Elevated troponin Status: Acute Hospital Course & Plan: Her troponin is in equivocal range, but has not risen in a pattern consistent with myocardial injury. (4) Hypernatremia Status: Acute Hospital Course & Plan: Her sodium was decreasing with an infusion of 1/2 NS, but now saline locked. (5) Sacral pressure sore Status: Chronic Hospital Course & Plan: Physical therapy has been consulted for wound care. Departure Latest Vital Signs Vital Signs 08/24/17 08/26/17 08/26/17 07:23 02:19 09:19 Temp 98.3 Pulse 117 Resp 24 B/P (MAP) 132/88 (103) Pulse Ox 82 Weight (Pounds): 118 Weight (Ounces): 8.0 Result Diagram: 08/24/1752408/24/17524 Condition: No Change Discharge: [facility] Discharge Instructions Home Meds Active Scripts Cyanocobalamin (Vitamin B-12) (CYANOCOBALAMIN INJECTION) 1,000 Mcg/1 Ml Vial, 1000 MCG IM DIRECTED, #10 VIAL 1 Refill 1,000 mcg daily for 1 week then 1,000 mcg weekly for 1 month then 1,000 mcg monthly thereafter Prov:WELLINGTON THOMAS APRN 01/12/16 Citalopram Hydrobromide (CITALOPRAM HBR) 20 Mg Tablet, 1 TAB PO QDAY, #5 TAB 5 Refills TAKE 1 TABLET BY MOUTH EVERY DAY Prov:WELLINGTON THOMAS APRN 10/16/15 Aspirin (ASPIR 81) 81 Mg Tablet., 1 TAB PO QDAY, #30 TAB 11 Refills Prov:WELLINGTON THOMAS APRN 10/04/15 Acetaminophen (TYLENOL EXTRA STRENGTH) 500 Mg Tablet, 1 TAB PO TID, #90 TAB 12 Refills Prov:WELLINGTON THOMAS APRN-Abdirahman 04/03/15 Cholecalciferol (Vitamin D3) (VITAMIN D) 2,000 Unit Capsule, 1 CAP PO QDAY, #90 CAPSULE 4 Refills Prov:NORMA SALINAS MD 09/08/14 Reported Medications Calcium Carbonate/Vitamin D3 (CALCIUM 600 + VIT D 200 TABLET) 1 Each Tablet, 1 EACH PO BID 08/22/17 Glycopyrrolate (GLYCOPYRROLATE) 0.2 Mg/1 Ml Vial, 0.1 MG SL Q6H Y for EXCESS ORAL SECRETIONS, VIAL 08/21/17 Acetaminophen (TYLENOL) 325 Mg Tablet, 2 TAB PO Q4H Y for PAIN OR FEVER 100 OR GREATER, TAB 03/10/17 Discontinued Reported Medications Guaifenesin/Dextromethorphan (TUSSIN DM LIQUID) 118 Ml Liquid, 118 ML PO PRN 03/10/17 Nystatin 100,000 Unit/Gm Top Powder (NYSTATIN 100,000 UNIT/GM TOP POWDER) 15 Gm Powder, 15 GM TP PRN, TUBE 03/10/17 Polyethylene Glycol 3350 (MIRALAX) 17 Gm Powd.pack, 17 GM PO PRN, PKT 03/10/17 Sodium Chloride (DEEP SEA) 44 Ml [place], 44 ML NS PRN, SPRAY 03/10/17 Diclofenac Sodium 1% Gel (VOLTAREN 1% GEL) 100 Gm Gel..gram., 4 GM TOP TID Y for PAIN 10/14/14 Discontinued Scripts Calcium Carbonate/Vitamin D3 (CALCIUM 600 + VIT D CAPLET) 1 Each Tablet, 1 EACH PO TID, #90 TAB 11 Refills Prov:WELLINGTON THOMAS APRN 05/09/15 Omeprazole (OMEPRAZOLE) 20 Mg Tablet.dr, 1 TAB PO BID, #180 TAB 4 Refills TAKE ONE TABLET BY MOUTH TWICE A DAY Prov:WELLINGTON THOMAS APRN 11/27/15 Diet: Regular Activity: As Tolerated Special Instructions: Copies to: WELLINGTON THOMAS APRN Venous Thromboembolism Antithrombotics Is Pt On Any Antithrombotics?: No ELAN LUNA RECORD FILING CLERK August 26, 2017 10:07
[2017-08-26] MEDS: LORazepam 2 MG/ML VIAL IVP PRN ×4 (11:31→15:32)
--- NOTE | 2017-08-26 20:21 | Death Summary ---
Pronounced Date: August 26, 2017 Pronounced Time: 19:40 Preliminary Cause of : Sepsis Assessment: Hypernatremia Sacral Pressure Sore Parkinson disease Dysphagia RLS GERD Depression CVD Uterine Cancer History History of Present Illness Please see admission history and physical for details. Hospital Course She was admitted for sepsis and hypernatremia. She was initially hydrated and placed on Primaxin. The family decided make her comfort care, so IVF and Primaxin was stopped. She was started on continuous morphine and given prn lorazepam for presumed air hunger, discomfort and anxiety. She was found without spontaneous respirations or heart tones by staff this evening. Copies to: WELLINGTON THOMAS APRN, LARS MD August 26, 2017 20:20
[2017-08-28] MEDS ORDERED: PATCH REMOVAL 1 EA TP ONE (09:00)
== END 2017-08-26 19:40 | disposition expired | DRG 871 ==
LOC: ER 21:55 → MED 08-22 01:33
PROVIDERS: ADMIT Internal Medicine; ATTEND Internal Medicine
PROC: 0JD73ZZ Extraction of Back Subcutaneous Tissue and Fascia, Percutaneous Approach (ICD-10-PCS; principal; 2017-08-22)
DX: A41.51 Sepsis due to Escherichia coli [E. coli] (principal); L89.153 Pressure ulcer of sacral region, stage 3; E87.0 Hyperosmolality and hypernatremia; G20 Parkinson's disease; Z51.5 Encounter for palliative care; Z66 Do not resuscitate; K21.9 Gastro-esophageal reflux disease without esophagitis; F41.9 Anxiety disorder, unspecified; F32.9 Major depressive disorder, single episode, unspecified; I25.10 Atherosclerotic heart disease of native coronary artery without angina pectoris; R13.10 Dysphagia, unspecified; G25.81 Restless legs syndrome; R09.02 Hypoxemia; E78.5 Hyperlipidemia, unspecified; E86.0 Dehydration; F03.90 Unspecified dementia, unspecified severity, without behavioral disturbance, psychotic disturbance, mood disturbance, and anxiety; I10 Essential (primary) hypertension; M81.0 Age-related osteoporosis without current pathological fracture; Z96.651 Presence of right artificial knee joint; Z96.643 Presence of artificial hip joint, bilateral; Z85.42 Personal history of malignant neoplasm of other parts of uterus; Z88.2 Allergy status to sulfonamides; Z88.8 Allergy status to other drugs, medicaments and biological substances; Z90.710 Acquired absence of both cervix and uterus
CPT/HCPCS: 36415; 70450; 71045; 81001; 82040; 82247; 82310; 82374; 82435; 82565; 82947; 83605; 83880; 84075; 84132; 84155; 84295; 84450; 84460; 84484; 84520; 85025; 86140; 87040; 87077; 87088; 87186; 93005; 97161; 99285; J0743; J2060; J2270; J3480; J7030; J7040; J7050

== ENCOUNTER → 2017-08-21 | Outpatient (CLI) | payer MEDICARE, MEDICAID ==
[~2017-08-21] MED LIST: ACET-1966 PO; ACET500T68 PO; AMOX-559 PO; ASPI-1471 PO; AUG875 PO; BENZ200C15 PO; BISA-236 PR; BP MED; CALC-1060 PO; CALC-649 PO; CALC-797 PO; CEPH-13 PO; CHOL10005 PO; CHOL200021 PO; CITA-128 PO; CITA-145 PO; CLON-393 PO; CYAN1000 IM; DAR75 PO; DARI15TA5 PO; DICL100G39 TOP; DOCU-202 PO; DONE10TA38 PO; DULO60CA51 PO; ERGO500025 PO; FESO8PT PO; FLUT9.9S; FURO-45 PO; GUAI600T57 PO; HYDR-385 PO; IBUP-56 PO; LANS15CA38 PO; LOR5 PO; LOR5/325 PO; METO-259 PO; METO25TA23 PO; MOM PO; NYST100040 TOP; NYST15PO4 TP; OMEP-137 PO; OMEP-218 PO; ONDA4TAB97 PO; POLY119P24 PO; POLY17PO25 PO; ROPI0.2528 PO; ROS10 PO; SIMV-44 PO; SODI30SP6 ENA; SODI44SP13 NS; SPIR1TAB2 PO; SPIR25TA78 PO; VALS160T20 PO; [UNRECOGNIZED DRUG - CODE] MC; [UNRECOGNIZED DRUG - CODE] PO; [UNRECOGNIZED DRUG - CODE] SL
[2017-08-22 09:16] VITALS: BMI 18.5
== END ==
LOC: AMB 21:18
PROVIDERS: ATTEND Nurse Practitioner
DX: R09.02 Hypoxemia (principal); R00.0 Tachycardia, unspecified; Z87.01 Personal history of pneumonia (recurrent); I48.91 Unspecified atrial fibrillation
CPT/HCPCS: A0425; A0427